=== PATIENT | male | born 1955 | race Caucasian/White ===

== ENCOUNTER 2018-07-21 13:29 | Outpatient (CLI) | payer MEDICARE ==
--- NOTE | 2018-07-21 15:18 | CT ---
CT ABDOMEN WITH AND WITHOUT IV CONTRAST CT PELVIS WITH AND WITHOUT IV CONTRAST: Date: 07-21-18 History: Neuroendocrine tumor. History of prior colon cancer 10 years ago. Post-surgery. History of p rostate cancer. Comparison: None available. FINDINGS: Lung bases are clear. No pulmonary nodule, mass or pleural effusion is seen. Splenic granulomata are present. There is a 2.2 cm fluid density lesion seen within the junction mid portion superior pole left kidney most suggestive of parapelvic renal cysts. Kidneys otherwise have a normal CT appearance bilaterally . The liver, pancreas, bilateral adrenal glands, opacified bowel, and urinary bladder demonstrate a nor mal CT appearance. There is thickening involving the cecum and on precontrast images this does demons trate mass like appearance with the area of mass like density extending to involve a portion of the i leocecal valve. This mass measures approximately 4.6 cm x 3.6 cm on axial imaging. There is no evidence of a bowel obstruction. The appendix is short in length and could be related to an appendiceal stump but the diameter is increased measuring 10 mm. However, there is no periappendic eal inflammatory changes seen. There is no free fluid, fluid collection, or lymphadenopathy in the abdomen or pelvis. Degenerative changes are seen in the spine. There is a bone island present in the left iliac bone wit h a small sclerotic and lucent lesion seen within the right iliac bone which has a nonaggressive appe arance as well. Degenerative changes of the left hip are present. There is grade I anterolisthesis of L5 on S1 with bilateral pars defects present. Vascular calcificat ions seen in the abdominal aorta and iliac arteries. IMPRESSION: 1. Evidence of a cecal mass worrisome for a neoplastic process. 2. No CT findings to suggest metastatic disease. 3. Additional incidental findings are as described above. 4. Above findings concerning the cecal mass were discussed with Dr. Chacon on 07-21-18 at 1356 hours. POS: [facility]
== END 2018-07-21 13:30 | disposition home or self-care (01) ==
LOC: BICCT 13:29
PROVIDERS: ATTEND Internal Medicine Gastroenterology
DX: D3A.8 Other benign neuroendocrine tumors (principal); K63.89 Other specified diseases of intestine
CPT/HCPCS: 74178; 82565

== ENCOUNTER 2018-08-05 09:54 | Outpatient (CLI) | payer MEDICARE ==
[2018-08-05 12:06] LABS: Hemoglobin A1c 5.7 % (4.0-6.0)
--- NOTE | 2018-08-08 11:49 | EKG ---
Test Reason : Blood Pressure : / mmHG Vent. Rate : 063 BPM Atrial Rate : 063 BPM P-R Int : 152 ms QRS Dur : 112 ms QT Int : 444 ms P-R-T Axes : 011 037 026 degrees QTc Int : 454 ms Normal sinus rhythm Incomplete right bundle branch block Borderline ECG Confirmed by EVERETT SARMIENTO ([id number]) on 08/08/2018 11:48:54 AM Referred By: NAKUL Confirmed By:EVERETT SARMIENTO
== END 2018-08-05 09:55 | disposition home or self-care (01) ==
LOC: LABBT 09:54
PROVIDERS: ATTEND Surgery
DX: Z01.818 Encounter for other preprocedural examination (principal); K63.89 Other specified diseases of intestine
CPT/HCPCS: 83036; 93005; 93010

== ENCOUNTER 2018-08-05 10:00 | Inpatient (IN) | payer MEDICARE ==
[2018-08-05 10:22] VITALS: BMI 32.1
[2018-08-10] MEDS ORDERED: Bupivacaine HCl 0.5%/Epinephrine 1:200,000/PF 30 ml Vial ONE (08:08)
[2018-08-10] MEDS ORDERED: ePHEDrine/0.9% NaCl/PF SYRINGE 50 mg/10 ml ONE (08:21)
[2018-08-10] MEDS ORDERED: Dexamethasone 20 MG/5 ML VIAL ONE (08:21)
[2018-08-10] MEDS ORDERED: Glycopyrrolate 0.2 MG/ML 5 ML SYRINGE ONE (08:21)
[2018-08-10] MEDS ORDERED: PROPOFOL 200 MG/20 ML VIAL ONE (08:21)
[2018-08-10] MEDS ORDERED: Ondansetron PF 4 MG/2 ML Vial ONE (08:21)
[2018-08-10] MEDS ORDERED: Lidocaine 1% PF 5 ML VIAL ONE (08:21)
[2018-08-10] MEDS ORDERED: cefOXitin 2 GM VIAL ONE (10:32)
[2018-08-10] MEDS ORDERED: Gabapentin 300 MG CAP ONE (10:32)
[2018-08-10] MEDS ORDERED: CeleCOXIB 100 MG CAP ONE (10:32)
[2018-08-10] MEDS ORDERED: Sodium Chloride 0.9% 100 ML ONE (10:33)
[2018-08-10] MEDS ORDERED: Dexamethasone 4 mg/ml Vial ONE (10:40)
[2018-08-10] MEDS ORDERED: Midazolam HCl 2 mg/2 ml Vial ONE (10:40)
[2018-08-10] MEDS ORDERED: Fentanyl 100 MCG/2 ML VIAL ONE ×2 (10:40→11:27)
[2018-08-10] MEDS ORDERED: Indocyanine Green 25 MG/10 ML VIAL ONE (10:54)
[2018-08-10] MEDS ORDERED: Ondansetron HCl/PF 4 MG/2 ML Vial IVP PRN (13:19)
[2018-08-10] MEDS ORDERED: Promethazine HCl 25 MG/ML VIAL SLOW IVP PRN (13:19)
[2018-08-10] MEDS ORDERED: Promethazine HCl 25 MG/ML VIAL IM PRN ×2 (13:19→15:11)
[2018-08-10] MEDS ORDERED: Fentanyl 100 MCG/2 ML VIAL SLOW IVP PRN ×2 (15:11)
[2018-08-10] MEDS ORDERED: hydrALAZINE 20 MG/ML VIAL SLOW IVP PRN (15:11)
[2018-08-10] MEDS ORDERED: Ondansetron PF 4 MG/2 ML Vial IVP PRN (15:11)
[2018-08-10] MEDS: Acetaminophen 1,000 MG in Premix Bag 1 BAG IVPB SCH ×2 (17:15→23:09)
[2018-08-10] MEDS: D5 1/2 NS w/20 mEq KCL 1,000 ML IV SCH (17:19)
[2018-08-10] MEDS ORDERED: cefOXitin 2 GM in Sodium Chloride 0.9% 100 ML IVPB SCH (18:00)
[2018-08-10] MEDS: Famotidine 20 MG TAB PO SCH (22:30)
[2018-08-10] MEDS: Famotidine/PF 20 mg/2ml Vial SLOW IVP SCH (22:36)
[2018-08-10] MEDS: cefOXitin 2 GM in Sodium Chloride 0.9% 100 ML IVPB SCH (23:09)
[2018-08-11] MEDS: D5 1/2 NS w/20 mEq KCL 1,000 ML IV SCH ×2 (01:36→13:15)
[2018-08-11] MEDS: Acetaminophen 1,000 MG in Premix Bag 1 BAG IVPB SCH ×2 (05:44→11:12)
[2018-08-11] MEDS: cefOXitin 2 GM in Sodium Chloride 0.9% 100 ML IVPB SCH (05:45)
[2018-08-11 05:57] LABS: #Lymphocytes 0.6 thou/uL (1.20-3.40); #Monocytes 0.7 thou/uL (0.11-0.59); %Basophils 0.4 % (0.0-1.0); %Eosinophils 0.1 % (0.0-10.0); %Lymphocytes 5.6 % (21.0-51.0); %Neutrophils 88.1 % (42.0-75.0); Hemoglobin 11.9 g/dL (14.0-18.0); Mean Corpuscular HGB CONC 32.7 g/dL (32.0-36.0); Mean Corpuscular Hemoglobin 31.1 pg (27.0-31.0); Mean Corpuscular Volume 95.2 fL (78.0-98.0); Platelet Count 189 thou/uL (130-400); RBC Distribution Width 11.7 % (11.5-14.5); Red Blood Cell (RBC) Count 3.84 mill/uL (4.70-6.10); White Blood Cell (WBC) Count 11.4 thou/uL (4.8-10.8)
[2018-08-11 06:22] LABS: Anion Gap 12 mmol/L (10-20); BUN (Urea Nitrogen) 11 mg/dL (8.4-25.7); Calc. Creatinine Clearance 95 mL/min (70-130); Calcium 8.6 mg/dL (7.8-10.44); Carbon Dioxide 24 mmol/L (23-31); Chloride 102 mmol/L (98-107); Estimated GFR-MDRD 64; Glucose 160 mg/dL (80-115); Potassium 4.7 mmol/L (3.5-5.1); Sodium 133 mmol/L (136-145)
[2018-08-11] MEDS: Enoxaparin Sodium 40 MG/0.4 ML SYRINGE SC SCH (08:40)
[2018-08-11] MEDS: Losartan 25 MG TAB PO SCH (08:40)
[2018-08-11] MEDS: Famotidine 20 MG TAB PO SCH ×2 (08:40→21:11)
[2018-08-11] MEDS ORDERED: D5 1/2 NS w/20 mEq KCL 1,000 ML IV SCH (09:32)
[2018-08-11] MEDS ORDERED: traMADol HCl 50 MG TAB PO PRN ×2 (11:02)
[2018-08-11] MEDS: Famotidine/PF 20 mg/2ml Vial SLOW IVP SCH ×2 (13:15→20:50)
[2018-08-12] MEDS: Losartan 25 MG TAB PO SCH (09:28)
[2018-08-12] MEDS: Famotidine 20 MG TAB PO SCH (09:28)
[2018-08-12] MEDS: Enoxaparin Sodium 40 MG/0.4 ML SYRINGE SC SCH (09:28)
[2018-08-12] MEDS: Famotidine/PF 20 mg/2ml Vial SLOW IVP SCH (09:29)
--- NOTE | 2018-08-12 09:56 | DIS ---
DATE OF ADMISSION: 08/10/2018 DATE OF DISCHARGE: 08/12/2018 ADMITTING DIAGNOSES: Right colon mass, neuroendocrine tumor. DISCHARGE DIAGNOSES: Right colon mass, neuroendocrine tumor. PROCEDURES: Right hemicolectomy by Dr. Brooks without complication. CONDITION AT DISCHARGE: Improved. STAFF: Dr. Benito Brooks. HOSPITAL COURSE: Postop day #1, the patient is doing well. His diet was advanced to full liquids. No nausea, vomiting. He is ambulatory. On postop day #1, his Clark was removed. On postop day #2, the patient is urinating without difficulty. He has no bloating. He has active bowel sounds. He alexandre s had passing gas. He is to be discharged home. DISCHARGE MEDICINES: Include tramadol and Zofran, which are sent to his pharmacy, [id number] in [place]. DISCHARGE FOLLOWUP: He will follow up with me in 2 weeks. Pathology pending at the time of this dic tation.
[2018-08-12 11:35] VITALS: BP 131/75; TEMP 97.7
--- NOTE | 2018-09-08 02:23 | OP ---
DATE OF PROCEDURE: 08/10/2018 PREOPERATIVE DIAGNOSIS: Ascending colon mass. POSTOPERATIVE DIAGNOSIS: Ascending colon mass. PROCEDURE: Open right hemicolectomy with ileocolic anastomosis. ANESTHESIA: General. ESTIMATED BLOOD LOSS: Minimal. COMPLICATION: None. FINDINGS: Due to the neuroendocrine nature of the tumor, there was extensive shortening of the mesentery at the ileocolic vessels making an open approach preferred. TECHNIQUE: The patient was taken to the operating room and laid supine on the operating room table. After general anesthetic was obtained, the abdomen was prepped and draped in a sterile fashion. A Clark catheter had been placed. Left subcostal 5 mm Optiview trocar was placed in the usual fashion and high-flow pneumoperitoneum was obtained. A few left-sided abdominal ports were placed. Attempts were made to mobilize the right colon, laparoscopic. It was unsuccessful given the significant shortening of the mesentery due to the mass effect of the ileocolic vessels. Midline incision was made. The white line of Toldt was mobilized excluding the right ureter. The base of the peritoneum was opened. The ileocolic vessels were taken using Richelle clamp and silk ties. JANIS 75 stapler was fired across the terminal ileum proximal to this. Right colon was mobilized all the way to the proximal transverse colon. JANIS 75 stapler was fired across the colon at this level. The duodenum was found and not injured excluded from the dissection. The specimen was removed by taking the mesentery using Richelle clamps and silk ties. Specimen was sent to [facility] for final diagnosis. An isoperistaltic ileocolic anastomosis was performed by using a JANIS 75 stapler. The common enterotomy was closed using a running Vicryl suture. The mesenteric defect was closed using running Vicryl suture. Crotch stitch was placed using Vicryl as well. The abdomen was irrigated using sterile solution. There was no ongoing bleeding. No damage to any other intraabdominal structures. The fascia was closed using #1 PDS in the top and bottom, and tied in the middle. Subcutaneous tissues were irrigated. The skin was closed using 3-0 Vicryl, 4-0 Monocryl, and Dermabond. The laparoscopic port sites were closed using 4-0 Monocryl and Dermabond. The patient was then returned to Recovery in stable condition. All instrument counts, needle counts, and lap counts were correct. Job ID: [id number]
== END 2018-08-12 16:00 | disposition home or self-care (01) | DRG 330 ==
LOC: SURG A 08-10 09:53
PROVIDERS: ADMIT Surgery; ATTEND Surgery
PROC: 0DTK0ZZ Resection of Ascending Colon, Open Approach (ICD-10-PCS; principal; 2018-08-10)
PROC: 8E0W0CZ Robotic Assisted Procedure of Trunk Region, Open Approach (ICD-10-PCS; 2018-08-10)
DX: C18.2 Malignant neoplasm of ascending colon (principal); C7A.8 Other malignant neuroendocrine tumors; Z53.31 Laparoscopic surgical procedure converted to open procedure; E78.00 Pure hypercholesterolemia, unspecified; I10 Essential (primary) hypertension; F17.210 Nicotine dependence, cigarettes, uncomplicated
CPT/HCPCS: 36415; 36416; 80048; 85025; 88309; 88342; 88360; J0131; J0670; J0694; J1100; J2001; J2250; J2405; J2704; J3010; J7050; S0028

== ENCOUNTER 2018-11-10 08:20 | Outpatient (CLI) | payer MEDICARE ==
[2018-11-10] MEDS ORDERED: ISOVUE-370 76%-LOCM 1 ML ONE (10:30)
--- NOTE | 2018-11-10 11:41 | CT ---
CT OF CHEST AND ABDOMEN AND PELVIS PERFORMED WITH INTRAVENOUS CONTRAST ENHANCEMENT: HISTORY: The patient has a history of a stage III neuroendocrine carcinoma of bowel and had part of colon nyla michelle in August of 2018 with no treatment since the surgery. COMPARISON: A CT examination of 07/21/2018. FINDINGS: The lungs are clear of any infiltrative process. There is calcified granuloma within the left upper lobe. No pleural effusions. Calcified left hilar lymph nodes are seen. There is no significant mediastinal, hilar, or axillary l ymphadenopathy. CT ABDOMEN PERFORMED WITH INTRAVENOUS CONTRAST ENHANCEMENT: The liver, spleen, pancreas, and gallbladder regions appear unremarkable. The right and left adrenal glands are unchanged in appearance, slightly hyperplastic in appearance. RIGHT and left kidneys are normal in size. A parapelvic cyst involving the left kidney is again demo nstrated. There are multiple small lymph nodes which are stable appearance as compared to the prior examination. This includes a node on axial image 76 directly anterior to the aorta measuring in the 5-6 mm range. Two lymph nodes seen directly posterior to the IVC on axial image 79, both measuring 1 1 mm in short axis dimension as well as a 7 mm aortocaval node noted on image 86. In addition, there is a small 9-10 mm node which is in the region where the cecum was previously located and in this re gion are several mesenteric nodes, some of which show some dense calcification which including one of the larger nodes which was 1.5 cm in size. All these do appear stable. CT OF PELVIS PERFORMED WITH INTRAVENOUS CONTRAST ENHANCEMENT: Seed implants related to the prostate are noted. There is what appears to be anastomotic suture line in the rectosigmoid colon. I do not appreciate any significant pelvic lymphadenopathy or mass. The bladder region is unremarkable. Sclerotic density in the right iliac wing appears to be a benign lesion and is stable. A small fat-c ontaining paraumbilical hernia is seen. IMPRESSION: 1. Postoperative changes of the right colon with right hemicolectomy change. There are several smal l lymph nodes, all of which are stable in appearance as compared to the prior examination. These inc lude some right-sided mesenteric nodes and some nodes adjacent to the aorta and IVC all more prominen t than typically seen but unchanged since the 07/21/2018 study. Consideration for a PET scan to asse ss activity within these would be suggested if clinically indicated. 2. Prostate seed implants. There also appears to be anastomotic suture line in the rectosigmoid col on. 3. No evidence of any liver, metastatic disease, or pulmonary nodules. POS: [facility]
== END 2018-11-10 08:21 | disposition home or self-care (01) ==
LOC: BICCT 08:20
PROVIDERS: ATTEND Internal Medicine Hematology & Oncology
DX: C7A.8 Other malignant neuroendocrine tumors (principal); Z98.890 Other specified postprocedural states; Z51.0 Encounter for antineoplastic radiation therapy
CPT/HCPCS: 71260; 74177; 82565; Q9966

== ENCOUNTER 2019-11-29 09:46 | Outpatient (CLI) | payer MEDICARE ==
--- NOTE | 2019-11-29 12:13 | CT ---
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 COMPARISON: Prior CT of the chest, abdomen, and pelvis dated 11/10/[address] of the abdomen and pelvis with and w ithout contrast dated 07/21/2018. CONTRAST: 70 cc of Isovue 370. FINDINGS: CHEST: There is stable calcified granuloma in the left upper lobe. No suspicious pulmonary nodule or pleura l effusion is evident. There are coronary artery and thoracic aorta calcifications. There are calci fied lymph nodes within the left hilar region and left mediastinum. No pathologically enlarged lymph nodes are seen within the mediastinum, hilar, or axillary regions. ABDOMEN: No focal hepatic lesion is evident. The gallbladder, pancreas, and spleen appear within normal limit s. There are a few scattered calcified granuloma within the spleen. Mild hypertrophy of both adrenal glands is stable-appearing. No focal suspicious renal lesion is efren dent. There is a stable perirenal cyst involving the superior pole of the left kidney measuring 11 m m. There are moderate calcifications involving the abdominopelvic vasculature. There is postprocedural change of a partial colectomy with colorectal anastomosis. There are numerou s brachytherapy beads seen within an atrophied prostate gland. There is mild distention of the colon . There is a mild amount of retained stool within the colon. There is stable postprocedural change of a partial cecectomy and partial ileectomy. Primary anastomo sis is seen within the right lower quadrant of the abdomen. The nodular opacity seen near the small bowel resection site has increased in prominence on image 82 of series 2 measuring 11.2 cm where prev iously it measured 9.5 mm. The nodular mass-like opacity seen within the right lower quadrant mesentery on image 78 of series 2 measures 1.6 x 3.2 cm where previously it measured 1.6 x 3.5 cm. The enlarged mesenteric lymph node seen adjacent to the SMA on image 73 of series 2 is slightly smaller than on the prior examination me asuring 13 mm where it previously measured 15 mm. There has been interval enlargement of the retrocaval lymph node seen on image 72 of series 2 now felipe suring 17 mm where previously it measured 11 mm. Additional enlarged retrocaval lymph nodes are seen on image 67 of series 2 were measuring 9.4 mm and previously 6 mm. Additional retrocaval enlarged l ymph nodes measuring 7 mm previously measured 5 mm on image 64 of series 2. There is an enlarging aortocaval lymph node on image 80 of series 2 measuring 12 mm where previously it measured 7 mm. No acute osseous abnormality is evident. There are bilateral pars defects at L5 with grade I anterol isthesis. There is scattered degenerative and osteoarthritic change. There is a small supraumbilical, anterior abdominal wall hernia containing a loop of unobstructed sma ll bowel which is new from the prior examination. IMPRESSION: 1. Worsening lymphadenopathy of the right lower quadrant mesentery and retroperitoneum is suspicious for worsening malignant lymphadenopathy related to the patient's carcinoid tumor. No distant metast atic disease demonstrated. 2. Stable postsurgical change and chronic findings as above. 3. Small anterior abdominal wall supraumbilical abdominal wall hernia containing unobstructed loop o f small bowel. POS: [facility]
[2019-11-29] MEDS ORDERED: Iopamidol-370 76% 500 ML 1 ML ONE (13:49)
== END 2019-11-29 09:47 | disposition home or self-care (01) ==
LOC: BICCT 09:46
PROVIDERS: ATTEND Internal Medicine Hematology & Oncology
DX: C7A.021 Malignant carcinoid tumor of the cecum (principal); R59.0 Localized enlarged lymph nodes; K43.9 Ventral hernia without obstruction or gangrene; K42.9 Umbilical hernia without obstruction or gangrene
CPT/HCPCS: 71260; 74177; 82565; Q9967

== ENCOUNTER 2020-11-29 09:28 | Outpatient (CLI) | payer MEDICARE ==
[2020-11-29] MEDS ORDERED: Iopamidol-370 76% 500 ML 1 ML ONE (11:49)
--- NOTE | 2020-11-29 13:55 | CT ---
CT OF THE CHEST, ABDOMEN AND PELVIS WITH IV CONTRAST INDICATION: History of malignant carcinoid tumor of the cecum COMPARISON: CT the chest, abdomen and pelvis dated November 29, 2019, CT the abdomen and pelvis with and without contrast dated July 21, [address] of the chest, abdomen and pelvis dated every 2018. FINDINGS: CHEST: Lungs: There is a stable calcified granuloma in the left upper lobe. No new suspicious pulmonary nodu le is identified. No confluent airspace opacity is noted. Pleural space: No effusion. Mediastinum: There are calcified lymph nodes within the left hilar region and left aspect of the medi astinum. Axilla: No pathologically enlarged lymph nodes. ABDOMEN: Liver: There is a new hypodense lesion within segment 4A of the left hepatic lobe on image 4 series 2 measuring 1.6 cm. Gallbladder: Normal appearing. Pancreas: Normal. Adrenal glands: Hypertrophy of both adrenal glands is similar Spleen: Calcified granuloma the spleen Kidneys and ureters: There is a stable superior pole left renal peripelvic cysts. No focal solid camilo l lesion is evident. Vasculature: There are moderate vascular calcifications seen involving the visualized vasculature. Lymph nodes:There is worsening lymphadenopathy within the abdomen. The previously seen retrocaval lymph node on image 73 of series 3 now measures 2.5 cm where previousl y measured 1.6 cm. Shotty appearing lymph nodes within the para-aortic region have increased in size. One now measures 9 .5 mm were previously measured 6 mm. There is a seen aortocaval lymph node on image 79 of series 2 now measures 1.4 cm, where previously it measured 1.2 cm. The nodular masslike opacities seen adjacent to the small bowel resection site has increased in size and now has soft tissue continuation with the additional right lower quadrant mesenteric soft tissue mass seen on images 81 through 79 of the axial series. The right mesenteric soft tissue mass s een along the anastomotic suture line now measures 3.7 x 1.3 cm where previously measured 3.2 x 1.4 cm. Free fluid in abdomen:No free fluid is evident. PELVIS: Small and large bowel: There is a stable supraumbilical abdominal wall hernia containing unobstructed loops of small bowel. There are multiple small fat-containing anterior midline abdominal wall hernias. There is a fat-containing umbilicus hernia. There is postsurgical change of a partial colect tiago and colorectal anastomosis. There is partial small bowel resection in the right lower quadrant of the abdomen. Appendix:Not definitely seen Bladder: Normal. Rectal and perirectal soft tissues:Normal. Reproductive structures: There is stable brachytherapy beads within the prostate. There are vasectomy clips within the scrotum. Free fluid in pelvis: No free fluid is evident. Lymphadenopathy pelvis: No lymphadenopathy is evident. Osseous structures: No suspicious osteolytic or osteoblastic lesion is evident. There are bilateral p ars defects at L5. There is grade 1 anterolisthesis of L5 on S1. There is scattered degenerative and osteoarthritic changes. There is stable small scattered sclerotic lesions within the pelvis, bhavana lar in size and appearance to the 07/21/2018 examination. Soft tissues:Normal. IMPRESSION: 1. Findings most consistent with worsening metastatic disease of the abdomen and pelvis. There is a n ew hypodense mass in the left hepatic lobe suspicious for metastatic disease. There is worsening retroperitoneal lymphadenopathy. The soft tissue masses in the right lower quadrant mesentery has inc reased in size from the prior exam. 2. No evidence of metastatic disease within the thorax. 3. No suspicious osseous lesion is evident. Small sclerotic lesions within the pelvis of been stable since 2018 and suspicious for either a low-grade chondroid lesion and or small bone islands. 4. Stable supraumbilical abdominal wall hernia containing unobstructed loops of small bowel. 5. Stable left renal cyst 6. Stable hypertrophy of both adrenal glands.
== END 2020-11-29 09:29 | disposition home or self-care (01) ==
LOC: BICCT 09:28
PROVIDERS: ATTEND Internal Medicine Hematology & Oncology
DX: C7A.021 Malignant carcinoid tumor of the cecum (principal); R59.0 Localized enlarged lymph nodes; R19.03 Right lower quadrant abdominal swelling, mass and lump; R16.0 Hepatomegaly, not elsewhere classified; E27.8 Other specified disorders of adrenal gland; N28.1 Cyst of kidney, acquired; K43.9 Ventral hernia without obstruction or gangrene; M89.9 Disorder of bone, unspecified
CPT/HCPCS: 71260; 74177; 82565; Q9967

== ENCOUNTER 2021-11-28 09:15 | Outpatient (CLI) | payer MEDICARE ==
[2021-11-28] MEDS ORDERED: Iopamidol-370 76% 500 ML 1 ML ONE (11:23)
== END 2021-11-28 09:16 | disposition home or self-care (01) ==
LOC: BICCT 09:15
PROVIDERS: ATTEND Internal Medicine Hematology & Oncology
DX: C7A.021 Malignant carcinoid tumor of the cecum (principal); C7B.02 Secondary carcinoid tumors of liver; F17.220 Nicotine dependence, chewing tobacco, uncomplicated; F10.10 Alcohol abuse, uncomplicated; K76.89 Other specified diseases of liver; R59.0 Localized enlarged lymph nodes; I25.10 Atherosclerotic heart disease of native coronary artery without angina pectoris; I70.0 Atherosclerosis of aorta
CPT/HCPCS: 71260; 74177; 82565; Q9967

== ENCOUNTER 2022-06-05 09:01 | Outpatient (CLI) | payer MEDICARE ==
[2022-06-05] MEDS ORDERED: Iopamidol-370 76% 500 ML 1 ML ONE (15:17)
== END 2022-06-05 09:02 | disposition home or self-care (01) ==
LOC: BICCT 09:01
PROVIDERS: ATTEND Internal Medicine Hematology & Oncology
DX: C7B.8 Other secondary neuroendocrine tumors (principal); C7A.021 Malignant carcinoid tumor of the cecum; F17.220 Nicotine dependence, chewing tobacco, uncomplicated; C78.7 Secondary malignant neoplasm of liver and intrahepatic bile duct; N13.30 Unspecified hydronephrosis; R59.0 Localized enlarged lymph nodes; K63.89 Other specified diseases of intestine
CPT/HCPCS: 71260; 74177; 82565; Q9967

== ENCOUNTER 2022-12-07 09:19 | Outpatient (CLI) | payer MEDICARE ==
[2022-12-07] MEDS ORDERED: Iopamidol-370 76% 500 ML 1 ML ONE (09:30)
== END 2022-12-07 09:20 | disposition home or self-care (01) ==
LOC: BICCT 09:19
PROVIDERS: ATTEND Internal Medicine Hematology & Oncology
DX: C7A.021 Malignant carcinoid tumor of the cecum (principal); F17.220 Nicotine dependence, chewing tobacco, uncomplicated; C22.8 Malignant neoplasm of liver, primary, unspecified as to type; N13.2 Hydronephrosis with renal and ureteral calculous obstruction; K43.9 Ventral hernia without obstruction or gangrene; M53.88 Other specified dorsopathies, sacral and sacrococcygeal region
CPT/HCPCS: 74177; 82565; Q9967

== ENCOUNTER 2023-03-05 07:09 | Inpatient (IN) | payer MEDICARE ==
[2023-03-04 10:44] VITALS: BMI 28.5
[2023-03-05] MEDS ORDERED: Dexamethasone 20 MG/5 ML VIAL ONE (08:00)
[2023-03-05] MEDS ORDERED: PROPOFOL 200 MG/20 ML VIAL ONE (08:00)
[2023-03-05] MEDS ORDERED: Succinylcholine 200 MG/10 ml SYRINGE FS ONE (08:00)
[2023-03-05] MEDS ORDERED: Ondansetron PF 4 MG/2 ML Vial ONE (08:00)
[2023-03-05] MEDS ORDERED: Lidocaine 1% PF 5 ML VIAL ONE (08:00)
[2023-03-05] MEDS ORDERED: Pantoprazole 40 MG VIAL IVP SCH (17:30)
[2023-03-05] MEDS ORDERED: Ondansetron PF 4 MG/2 ML Vial IVP PRN (18:42)
[2023-03-05] MEDS: Atorvastatin Calcium 40 MG TAB PO SCH (20:15)
[2023-03-05] MEDS: Tamsulosin HCl 0.4 MG CAP PO SCH (20:15)
[2023-03-05] MEDS ORDERED: Tamsulosin HCl 0.4 MG CAP PO SCH (21:00)
[2023-03-06 06:06] LABS: #Monocytes 0.8 thou/uL (0.11-0.59); #Neutrophils 6.4 thou/uL (1.40-6.50); %Basophils 0.2 % (0.0-1.0); %Eosinophils 0.1 % (0.0-10.0); %Lymphocytes 14.9 % (21.0-51.0); %Monocytes 9.3 % (0.0-10.0); %Neutrophils 75.3 % (42.0-75.0); Hemoglobin 11.5 g/dL (14.0-18.0); Mean Corpuscular HGB CONC 31.7 g/dL (32.0-36.0); Mean Corpuscular Hemoglobin 28.5 pg (27.0-31.0); Mean Corpuscular Volume 90.1 fl (78.0-98.0); Mean Platelet Volume 10.3 fL (7.4-10.4); Platelet Count 198 10x3/uL (130-400); Red Blood Cell (RBC) Count 4.03 mill/uL (4.70-6.10); White Blood Cell (WBC) Count 8.5 10x3/uL (4.8-10.8)
[2023-03-06 07:13] LABS: ALT (SGPT) 19 U/L (8-55); AST (SGOT) 18 U/L (5-34); Albumin 3.1 g/dL (3.4-4.8); Alkaline Phosphatase 76 U/L (40-110); Anion Gap 19 mmol/L (10-20); BUN (Urea Nitrogen) 18 mg/dL (8.4-25.7); Bilirubin, Total 0.3 mg/dL (0.2-1.2); Calc. Creatinine Clearance 69 mL/min (70-130); Calcium 8.9 mg/dL (7.8-10.44); Carbon Dioxide 18 mmol/L (23-31); Chloride 96 mmol/L (98-107); Estimated GFR 59; Globulin 2.9 g/dL (2.4-3.5); Glucose 108 mg/dL (80-115); Potassium 4.5 mmol/L (3.5-5.1); Sodium 128 mmol/L (136-145)
[2023-03-06] MEDS ORDERED: Losartan 25 MG TAB PO SCH (09:00)
[2023-03-06] MEDS ORDERED: Atorvastatin Calcium 40 MG TAB PO SCH (09:00)
[2023-03-06] MEDS: Pantoprazole 40 MG VIAL IVP SCH (10:01)
[2023-03-06] MEDS ORDERED: Benzonatate 100 MG CAP PO SCH (10:30)
[2023-03-06] MEDS: Diltiazem HCl SR 60 mg Capsule PO SCH ×2 (11:32→11:35)
[2023-03-06] MEDS: Benzonatate 100 MG CAP PO SCH ×2 (17:28→20:56)
[2023-03-06] MEDS: Atorvastatin Calcium 40 MG TAB PO SCH (20:55)
[2023-03-06] MEDS: Tamsulosin HCl 0.4 MG CAP PO SCH (20:56)
[2023-03-07] MEDS: Diltiazem HCl SR 60 mg Capsule PO SCH (08:19)
[2023-03-07] MEDS: Pantoprazole 40 MG VIAL IVP SCH (08:19)
[2023-03-07] MEDS: Benzonatate 100 MG CAP PO SCH ×3 (08:19→20:04)
[2023-03-07] MEDS ORDERED: Non-Formulary Item 1 EACH (Diltiazem Hcl [Diltiazem 12hr Er] 120 MG Cap.Er.12h) PO SCH (09:00)
[2023-03-07] MEDS ORDERED: chlorproMAZINE HCl 25 MG in Sodium Chloride 0.9% 50 ML IVPB PRN (16:42)
[2023-03-07] MEDS: Tamsulosin HCl 0.4 MG CAP PO SCH (20:03)
[2023-03-07] MEDS: Atorvastatin Calcium 40 MG TAB PO SCH (20:03)
[2023-03-08 05:58] LABS: #Eosinphils 0.1 thou/uL (0.0-0.7); #Monocytes 0.9 thou/uL (0.11-0.59); #Neutrophils 4.6 thou/uL (1.40-6.50); %Basophils 0.4 % (0.0-1.0); %Eosinophils 0.9 % (0.0-10.0); %Lymphocytes 19.4 % (21.0-51.0); %Monocytes 12.5 % (0.0-10.0); %Neutrophils 66.5 % (42.0-75.0); Hemoglobin 11.2 g/dL (14.0-18.0); Mean Corpuscular HGB CONC 30.6 g/dL (32.0-36.0); Mean Corpuscular Hemoglobin 28.1 pg (27.0-31.0); Mean Platelet Volume 9.3 fL (7.4-10.4); Platelet Count 188 10x3/uL (130-400); RBC Distribution Width 14.1 % (11.5-14.5); Red Blood Cell (RBC) Count 3.98 mill/uL (4.70-6.10); White Blood Cell (WBC) Count 6.9 10x3/uL (4.8-10.8)
[2023-03-08 06:19] LABS: Anion Gap 14 mmol/L (10-20); BUN (Urea Nitrogen) 17 mg/dL (8.4-25.7); Calc. Creatinine Clearance 77 mL/min (70-130); Calcium 8.7 mg/dL (7.8-10.44); Carbon Dioxide 23 mmol/L (23-31); Chloride 94 mmol/L (98-107); Estimated GFR 67; Glucose 120 mg/dL (80-115); Sodium 127 mmol/L (136-145)
[2023-03-08] MEDS: Benzonatate 100 MG CAP PO SCH ×3 (09:14→21:07)
[2023-03-08] MEDS: Diltiazem HCl SR 60 mg Capsule PO SCH (09:15)
[2023-03-08] MEDS: Pantoprazole 40 MG VIAL IVP SCH (09:15)
[2023-03-08] MEDS: Atorvastatin Calcium 40 MG TAB PO SCH (21:07)
[2023-03-08] MEDS: Tamsulosin HCl 0.4 MG CAP PO SCH (21:07)
[2023-03-09 05:45] LABS: #Monocytes 0.8 thou/uL (0.11-0.59); #Neutrophils 4.9 thou/uL (1.40-6.50); %Basophils 0.3 % (0.0-1.0); %Eosinophils 0.4 % (0.0-10.0); %Monocytes 11.7 % (0.0-10.0); %Neutrophils 72.2 % (42.0-75.0); Hemoglobin 11.7 g/dL (14.0-18.0); Mean Corpuscular HGB CONC 33.1 g/dL (32.0-36.0); Mean Corpuscular Hemoglobin 28.6 pg (27.0-31.0); Mean Platelet Volume 9.7 fL (7.4-10.4); Platelet Count 212 10x3/uL (130-400); RBC Distribution Width 13.9 % (11.5-14.5); Red Blood Cell (RBC) Count 4.09 mill/uL (4.70-6.10); White Blood Cell (WBC) Count 6.9 10x3/uL (4.8-10.8)
[2023-03-09 05:56] LABS: Mean Corpuscular Volume 86.6 fl (78.0-98.0)
[2023-03-09 06:10] LABS: Anion Gap 14 mmol/L (10-20); BUN (Urea Nitrogen) 18 mg/dL (8.4-25.7); Calc. Creatinine Clearance 77 mL/min (70-130); Calcium 8.7 mg/dL (7.8-10.44); Carbon Dioxide 23 mmol/L (23-31); Chloride 92 mmol/L (98-107); Estimated GFR 67; Glucose 127 mg/dL (80-115); Potassium 3.9 mmol/L (3.5-5.1); Sodium 125 mmol/L (136-145)
[2023-03-09] MEDS: Benzonatate 100 MG CAP PO SCH ×3 (09:55→21:29)
[2023-03-09] MEDS: Diltiazem HCl SR 60 mg Capsule PO SCH (09:56)
[2023-03-09] MEDS: Pantoprazole 40 MG VIAL IVP SCH (09:56)
[2023-03-09 15:53] LABS: Potassium, Urine 23.7 mmol/L; Sodium, Urine Less than 20 mmol/L (Not Available)
[2023-03-09 20:21] LABS: Anion Gap 13 mmol/L (10-20); BUN (Urea Nitrogen) 18 mg/dL (8.4-25.7); Calc. Creatinine Clearance 73 mL/min (70-130); Calcium 8.6 mg/dL (7.8-10.44); Carbon Dioxide 26 mmol/L (23-31); Chloride 92 mmol/L (98-107); Estimated GFR 63; Glucose 123 mg/dL (80-115); Potassium 3.8 mmol/L (3.5-5.1); Sodium 127 mmol/L (136-145)
[2023-03-09] MEDS: Tamsulosin HCl 0.4 MG CAP PO SCH (21:29)
[2023-03-09] MEDS: Atorvastatin Calcium 40 MG TAB PO SCH (21:29)
[2023-03-10] MEDS ORDERED: Sodium Chloride 0.9% 1,000 ML IV SCH (07:00)
[2023-03-10] MEDS: Benzonatate 100 MG CAP PO SCH ×3 (09:07→23:02)
[2023-03-10] MEDS: Pantoprazole 40 MG VIAL IVP SCH (09:07)
[2023-03-10] MEDS: Diltiazem HCl SR 60 mg Capsule PO SCH (09:38)
[2023-03-10] MEDS ORDERED: Ondansetron PF 4 MG/2 ML Vial ONE (10:04)
[2023-03-10] MEDS ORDERED: Lidocaine 1% PF 5 ML VIAL ONE (10:04)
[2023-03-10] MEDS ORDERED: GLYCOPYRROLATE/PF 0.2 MG/ML VIAL ONE (10:04)
[2023-03-10] MEDS ORDERED: NEOSTIGMINE 3 MG/3 ML SYR 3 MG/3 ML SYRINGE ONE (10:04)
[2023-03-10] MEDS ORDERED: Rocuronium Bromide 10 MG/ML (10ML VIAL) ONE (10:04)
[2023-03-10] MEDS ORDERED: PROPOFOL 200 MG/20 ML VIAL ONE (10:04)
[2023-03-10] MEDS ORDERED: Dexamethasone 20 MG/5 ML VIAL ONE (10:04)
[2023-03-10] MEDS ORDERED: PHENYLEPHRINE-NS 100 MCG/ML 10 ML SYRINGE ONE (10:04)
[2023-03-10] MEDS ORDERED: Succinylcholine 200 MG/10 ml SYRINGE FS ONE (10:04)
[2023-03-10 11:00] LABS: Anion Gap 15 mmol/L (10-20); BUN (Urea Nitrogen) 19 mg/dL (8.4-25.7); Calc. Creatinine Clearance 70 mL/min (70-130); Calcium 8.8 mg/dL (7.8-10.44); Carbon Dioxide 26 mmol/L (23-31); Chloride 94 mmol/L (98-107); Estimated GFR 60; Glucose 131 mg/dL (80-115); Potassium 4.6 mmol/L (3.5-5.1); Sodium 130 mmol/L (136-145)
[2023-03-10] MEDS ORDERED: fentaNYL PF 100 MCG/2 ML SYRINGE ONE ×3 (13:24→15:02)
[2023-03-10] MEDS ORDERED: Sodium Chloride 0.9% 100 ML ONE (15:02)
[2023-03-10] MEDS ORDERED: cefOXitin 2 GM VIAL ONE (15:02)
[2023-03-10] MEDS ORDERED: Promethazine HCl 25 MG/ML VIAL IM PRN ×2 (16:53→18:40)
[2023-03-10] MEDS ORDERED: Ondansetron HCl/PF 4 MG/2 ML Vial IVP PRN (16:53)
[2023-03-10] MEDS ORDERED: HYDROmorphone 2 MG/ML VIAL SLOW IVP PRN (16:53)
[2023-03-10] MEDS ORDERED: Morphine Sulfate 2 MG/ML SYRINGE SLOW IVP PRN (16:53)
[2023-03-10] MEDS ORDERED: PACU-Morphine 4MG/ML VIAL SLOW IVP PRN (16:53)
[2023-03-10] MEDS ORDERED: Ondansetron PF 4 MG/2 ML Vial IVP PRN ×2 (16:55→18:40)
[2023-03-10] MEDS ORDERED: fentaNYL 50 mcg/mL 1 mL Vial ONE ×3 (17:07→18:26)
[2023-03-10] MEDS ORDERED: diphenhydrAMINE 25 MG CAP PO PRN (18:40)
[2023-03-10] MEDS ORDERED: Zolpidem Tartrate 5 MG TAB PO PRN (18:40)
[2023-03-10] MEDS ORDERED: Naloxone HCl 0.4 mg/ml Vial IV PRN (18:40)
[2023-03-10] MEDS ORDERED: HYDROmorphone 10 mg/100 ml CADD IVPB PRN (18:40)
[2023-03-10] MEDS ORDERED: diphenhydrAMINE 50 MG/ML VIAL IVP PRN (18:40)
[2023-03-10] MEDS ORDERED: diphenhydrAMINE 50 MG/ML VIAL IM PRN (18:40)
[2023-03-10] MEDS ORDERED: Communication Order-Pharmacy FS SCH (18:45)
[2023-03-10] MEDS ORDERED: HYDROmorphone/PF 10 MG in Sodium Chloride 0.9% 99 ML IVPB PRN (19:15)
[2023-03-10] MEDS: Sodium Chloride 0.9% 1,000 ML IV SCH (22:00)
[2023-03-10] MEDS: Atorvastatin Calcium 40 MG TAB PO SCH (23:01)
[2023-03-10] MEDS: Tamsulosin HCl 0.4 MG CAP PO SCH (23:02)
[2023-03-11] MEDS: Sodium Chloride 0.9% 1,000 ML IV SCH ×3 (05:04→22:01)
[2023-03-11 06:34] LABS: #Monocytes 0.6 thou/uL (0.11-0.59); %Basophils 0.2 % (0.0-1.0); %Lymphocytes 11.1 % (21.0-51.0); %Monocytes 9.4 % (0.0-10.0); %Neutrophils 78.7 % (42.0-75.0); Hemoglobin 11.4 g/dL (14.0-18.0); Mean Corpuscular HGB CONC 32.9 g/dL (32.0-36.0); Mean Platelet Volume 9.7 fL (7.4-10.4); Platelet Count 232 10x3/uL (130-400); Red Blood Cell (RBC) Count 3.93 mill/uL (4.70-6.10); White Blood Cell (WBC) Count 6.3 10x3/uL (4.8-10.8)
[2023-03-11 06:43] LABS: Anion Gap 13 mmol/L (10-20); BUN (Urea Nitrogen) 19 mg/dL (8.4-25.7); Calc. Creatinine Clearance 77 mL/min (70-130); Calcium 8.3 mg/dL (7.8-10.44); Carbon Dioxide 24 mmol/L (23-31); Chloride 98 mmol/L (98-107); Estimated GFR 66; Glucose 116 mg/dL (80-115); Potassium 4.4 mmol/L (3.5-5.1); Sodium 131 mmol/L (136-145)
[2023-03-11] MEDS: Pantoprazole 40 MG VIAL IVP SCH (09:05)
[2023-03-11] MEDS: Benzonatate 100 MG CAP PO SCH ×3 (09:06→22:01)
[2023-03-11] MEDS: Diltiazem HCl SR 60 mg Capsule PO SCH (09:06)
[2023-03-11] MEDS ORDERED: Furosemide 20 MG/2 ML VIAL SLOW IVP SCH (09:45)
[2023-03-11] MEDS ORDERED: hydrALAZINE 20 MG/ML VIAL SLOW IVP PRN (12:37)
[2023-03-11] MEDS: Tamsulosin HCl 0.4 MG CAP PO SCH (22:00)
[2023-03-11] MEDS: Atorvastatin Calcium 40 MG TAB PO SCH (22:01)
[2023-03-12 07:47] LABS: Hemoglobin 10.8 g/dL (14.0-18.0); Mean Corpuscular HGB CONC 33.2 g/dL (32.0-36.0); Mean Corpuscular Volume 87.4 fl (78.0-98.0); Mean Platelet Volume 9.1 fL (7.4-10.4); Platelet Count 245 10x3/uL (130-400); RBC Distribution Width 14.1 % (11.5-14.5); Red Blood Cell (RBC) Count 3.72 mill/uL (4.70-6.10); White Blood Cell (WBC) Count 7.5 10x3/uL (4.8-10.8)
[2023-03-12 08:09] LABS: Anion Gap 12 mmol/L (10-20); BUN (Urea Nitrogen) 21 mg/dL (8.4-25.7); Calc. Creatinine Clearance 77 mL/min (70-130); Calcium 8.4 mg/dL (7.8-10.44); Carbon Dioxide 25 mmol/L (23-31); Chloride 95 mmol/L (98-107); Estimated GFR 66; Glucose 115 mg/dL (80-115); Potassium 4.3 mmol/L (3.5-5.1); Sodium 128 mmol/L (136-145)
[2023-03-12] MEDS: Pantoprazole 40 MG VIAL IVP SCH (09:14)
[2023-03-12] MEDS: Benzonatate 100 MG CAP PO SCH ×3 (09:14→20:50)
[2023-03-12] MEDS: Diltiazem HCl SR 60 mg Capsule PO SCH (09:14)
[2023-03-12] MEDS ORDERED: Sodium Chloride 1 GM TAB PO SCH (10:00)
[2023-03-12 16:20] LABS: Potassium, Urine 34.2 mmol/L; Sodium, Urine Less than 20 mmol/L (Not Available)
[2023-03-12] MEDS ORDERED: Furosemide 40 MG/4 ML VIAL SLOW IVP SCH (17:00)
[2023-03-12] MEDS: Sodium Chloride 1 GM TAB PO SCH ×2 (17:12→20:51)
[2023-03-12] MEDS: Atorvastatin Calcium 40 MG TAB PO SCH (20:51)
[2023-03-12] MEDS: Tamsulosin HCl 0.4 MG CAP PO SCH (20:51)
[2023-03-13 06:07] LABS: #Eosinphils 0.1 thou/uL (0.0-0.7); #Monocytes 0.6 thou/uL (0.11-0.59); %Basophils 0.3 % (0.0-1.0); %Monocytes 8.1 % (0.0-10.0); %Neutrophils 75.7 % (42.0-75.0); Hemoglobin 11.3 g/dL (14.0-18.0); Mean Corpuscular HGB CONC 32.5 g/dL (32.0-36.0); Mean Corpuscular Hemoglobin 28.3 pg (27.0-31.0); Mean Platelet Volume 9.5 fL (7.4-10.4); Platelet Count 228 10x3/uL (130-400); RBC Distribution Width 14.1 % (11.5-14.5); White Blood Cell (WBC) Count 7.9 10x3/uL (4.8-10.8)
[2023-03-13 06:30] LABS: Anion Gap 15 mmol/L (10-20); BUN (Urea Nitrogen) 21 mg/dL (8.4-25.7); Calc. Creatinine Clearance 74 mL/min (70-130); Calcium 8.6 mg/dL (7.8-10.44); Carbon Dioxide 25 mmol/L (23-31); Chloride 97 mmol/L (98-107); Estimated GFR 64; Glucose 112 mg/dL (80-115); Sodium 133 mmol/L (136-145)
[2023-03-13] MEDS: Diltiazem HCl SR 60 mg Capsule PO SCH (08:12)
[2023-03-13] MEDS: Pantoprazole 40 MG VIAL IVP SCH (08:13)
[2023-03-13] MEDS: Benzonatate 100 MG CAP PO SCH ×3 (08:13→20:22)
[2023-03-13] MEDS: Sodium Chloride 1 GM TAB PO SCH ×3 (08:13→20:22)
[2023-03-13] MEDS: Atorvastatin Calcium 40 MG TAB PO SCH (20:21)
[2023-03-13] MEDS: Tamsulosin HCl 0.4 MG CAP PO SCH (20:21)
[2023-03-13] MEDS: Hydrocodone-Acetamin 15 ML UDCUP PO PRN (20:22)
[2023-03-14 07:24] LABS: Anion Gap 9 mmol/L (10-20); BUN (Urea Nitrogen) 19 mg/dL (8.4-25.7); Calc. Creatinine Clearance 90 mL/min (70-130); Calcium 8.3 mg/dL (7.8-10.44); Carbon Dioxide 27 mmol/L (23-31); Chloride 98 mmol/L (98-107); Estimated GFR 81; Glucose 115 mg/dL (80-115); Potassium 3.5 mmol/L (3.5-5.1); Sodium 130 mmol/L (136-145)
[2023-03-14] MEDS: Sodium Chloride 1 GM TAB PO SCH ×3 (08:38→20:09)
[2023-03-14] MEDS: Benzonatate 100 MG CAP PO SCH ×3 (08:38→20:09)
[2023-03-14] MEDS: Diltiazem HCl SR 60 mg Capsule PO SCH (08:38)
[2023-03-14] MEDS: Pantoprazole 40 MG VIAL IVP SCH (08:38)
[2023-03-14] MEDS: Hydrocodone-Acetamin 15 ML UDCUP PO PRN (20:08)
[2023-03-14] MEDS: Tamsulosin HCl 0.4 MG CAP PO SCH (20:09)
[2023-03-14] MEDS: Atorvastatin Calcium 40 MG TAB PO SCH (20:09)
[2023-03-15] MEDS: Pantoprazole 40 MG VIAL IVP SCH (08:43)
[2023-03-15] MEDS: Diltiazem HCl SR 60 mg Capsule PO SCH ×2 (08:43)
[2023-03-15] MEDS: Benzonatate 100 MG CAP PO SCH ×3 (08:43→20:59)
[2023-03-15] MEDS ORDERED: Furosemide 20 MG/2 ML VIAL SLOW IVP SCH (17:45)
[2023-03-15] MEDS: Atorvastatin Calcium 40 MG TAB PO SCH (20:59)
[2023-03-15] MEDS: Tamsulosin HCl 0.4 MG CAP PO SCH (20:59)
[2023-03-16] MEDS: Benzonatate 100 MG CAP PO SCH ×3 (08:40→20:08)
[2023-03-16] MEDS: Diltiazem HCl SR 60 mg Capsule PO SCH (08:41)
[2023-03-16] MEDS: Hydrocodone-Acetamin 15 ML UDCUP PO PRN ×2 (11:15→21:52)
[2023-03-16] MEDS: Tamsulosin HCl 0.4 MG CAP PO SCH (20:08)
[2023-03-16] MEDS: Atorvastatin Calcium 40 MG TAB PO SCH (20:08)
[2023-03-17] MEDS: Benzonatate 100 MG CAP PO SCH (09:28)
[2023-03-17] MEDS: Diltiazem HCl SR 60 mg Capsule PO SCH (09:29)
[2023-03-17 16:07] VITALS: BP 116/56; TEMP 97.8
== END 2023-03-17 16:16 | disposition home health service (06) | DRG 827 ==
LOC: SDC 07:09 → SJJU 16:43
PROVIDERS: ADMIT Family Medicine; ATTEND Family Medicine
PROC: 0DB98ZX Excision of Duodenum, Via Natural or Artificial Opening Endoscopic, Diagnostic (ICD-10-PCS; 2023-03-05)
PROC: 0DB78ZX Excision of Stomach, Pylorus, Via Natural or Artificial Opening Endoscopic, Diagnostic (ICD-10-PCS; 2023-03-05)
PROC: 0DB38ZX Excision of Lower Esophagus, Via Natural or Artificial Opening Endoscopic, Diagnostic (ICD-10-PCS; 2023-03-05)
PROC: 0D9670Z Drainage of Stomach with Drainage Device, Via Natural or Artificial Opening (ICD-10-PCS; 2023-03-05)
PROC: 0D160ZA Bypass Stomach to Jejunum, Open Approach (ICD-10-PCS; principal; 2023-03-10)
DX: C7B.8 Other secondary neuroendocrine tumors (principal); C18.0 Malignant neoplasm of cecum; K31.1 Adult hypertrophic pyloric stenosis; K22.10 Ulcer of esophagus without bleeding; E87.1 Hypo-osmolality and hyponatremia; N13.8 Other obstructive and reflux uropathy; N13.1 Hydronephrosis with ureteral stricture, not elsewhere classified; K29.60 Other gastritis without bleeding; I10 Essential (primary) hypertension; D63.8 Anemia in other chronic diseases classified elsewhere; E88.09 Other disorders of plasma-protein metabolism, not elsewhere classified; E78.5 Hyperlipidemia, unspecified; N40.1 Benign prostatic hyperplasia with lower urinary tract symptoms; E86.1 Hypovolemia; R33.8 Other retention of urine; E87.70 Fluid overload, unspecified; Z90.49 Acquired absence of other specified parts of digestive tract; Z85.038 Personal history of other malignant neoplasm of large intestine; Z85.46 Personal history of malignant neoplasm of prostate
CPT/HCPCS: 36415; 74176; 76770; 80048; 80053; 82436; 83935; 84133; 84300; 85025; 85027; 88305; 88313; 88342; 93970; A4649; C1889; C9113; J0694; J1100; J1170; J1940; J2405; J2704; J3010; J3230; J3490; J7050